=== PATIENT | female | born 1995 | race Caucasian/White ===

== ENCOUNTER 2019-10-22 11:48 | Emergency (ER) | payer SELFPAY ==
[2019-10-22 11:49] VITALS: BP 147/64; PULSE 78; RESP 18; TEMP 36.6; O2SAT 100; BMI 38.0
--- NOTE | 2019-10-22 13:24 | US_ITS ---
STUDY: ULTRASOUND OF THE FEMALE PELVIS - COMPLETE REASON FOR EXAM: Female, 24 years old. VAGINAL BLEEDING AFTER A FALL. -- ABD SENSITIVITY -- LT PELVIC PAIN -- HX OF BC IMPLANT LMP: TECHNIQUE: Transvaginal TECHNICAL QUALITY: Adequate. COMPARISON: None. FINDINGS: The uterus is anteverted and is in a midline position. The uterus measures 6.5 x 3.0 x 4.9 cm. Normal uterine cervix. The endometrium measures 5.1 mm in thickness, and is hyperechoic. Within the lower uterine segment there is a hypervascular 1.7 x 0.7 x 1.4 cm heterogenous rounded focus within the endometrial cavity. There is no demonstrated myometrial mass. I.U.D. - The patient does not have an I.U.D. The right ovary is visualized. The right ovary measures 3.2 x 3.1 x 1.9 cm. There is a 1.7 x 0.7 x 1.4 cm anechoic round focus abutting or arising from the right ovary with an appearance suggestive of a simple cyst. There is normal arterial and normal venous vascularity. The left ovary is visualized. The left ovary measures 3.1 x 1.5 x 2.8 cm. There is no left ovarian cyst or ovarian mass. There is no visualized left adnexal mass or complex lesion. There is normal arterial and normal venous vascularity. There is a moderate amount of fluid in the cul-de-sac. Polycystic ovary disease: No. US/Transvaginal Non- IMPRESSION: Indeterminant 1.7 x 0.7 x 1.4 cm heterogenous hypervascular focus within the endometrial cavity at the level of the lower uterine segment, may reflect an underlying polyp or submucosal fibroid, alternatively may reflect a focal hematoma. Free fluid. Electronically Signed: Deborah Reyes MD at 15:28 EST Tel , Service support ,
[2019-10-22] MEDS: Ondansetron 4 MG/2 ML Vial IV (13:31)
[2019-10-22] MEDS: Ketorolac 30 MG/ML Syringe IV (13:32)
[2019-10-22 13:48] VITALS: BP 116/56; PULSE 67; RESP 16; O2SAT 98
[2019-10-22 13:59] LABS: Absolute Lymphocyte Count 3.82 X10^3/uL (0.83-4.51); Absolute Neutrophil Count 7.6 X10^3/uL (2.0-7.7); Basophil# 0.05 X10^3/uL; Basophil% 0.4 % (0-1); Eosinophils% 2.4 % (0-5); Hematocrit 41.7 % (37-47); Hemoglobin 13.4 g/dL (12.0-15.0); Lymphocyte # 3.82 X10^3/ul (4.0); Lymphocyte % 30.3 % (19-41); Mean Corp Hgb Conc 32.1 g/dL (32-36); Mean Corpuscular Hgb 26.2 pg (27.0-32.0); Mean Corpuscular Volume 81.4 fL (81-99); Mean Platelet Vol. 10.8 fl (6.2-12.0); Monocyte# 0.77 X10^3/uL; Monocyte% 6.1 % (0-10); NRBC Flagged by Analyzer 0 % (0-5); Neutrophil # 7.63 X10^3/uL (2.7-7.7); Neutrophil % 60.5 % (47-70); Platelet Count 301 K/mm3 (150-450); RBC Distribution Width CV 14.1 % (11.6-14.6); RBC Distribution Width SD 41.3 fl (35.1-43.9); Red Blood Count 5.12 M/mm3 (4.2-5.4); White Blood Count 12.6 K/mm3 (4.4-11.0)
[2019-10-22 14:12] LABS: Anion Gap 8 (5-15); BUN 16 mg/dL (7-18); BUN/Creat Ratio 17.5 RATIO (10-20); Calcium,Total 9.4 mg/dL (8.5-10.1); Chloride 107 mmol/L (98-107); Creatinine, Serum 0.91 mg/dL (0.55-1.02); EST Glomerular Filtration Rate 80 mL/min (>60); Est Glom Filt Rate - Afr Amer 97 mL/min (>60); Estimated Creatinine Clearance 78.86 ml/min; Glucose 78 mg/dL (74-106); Potassium 3.9 mmol/L (3.5-5.1); Sodium Level 138 mmol/L (136-145)
[2019-10-22 14:20] LABS: Internal QC Validated? YES +Cl - CLEAR BKGD; Pregnancy, Urine Negative Negative
[2019-10-22 14:23] LABS: Bacteria 0 SEEN /hpf (None Seen); Mucous, Urine 0 SEEN /hpf (<or=2+)
[2019-10-22 14:25] LABS: Color, Urine Straw (Yellow); Glucose, Dipstick Normal (Normal); Ketone-Dipstick Negative (Negative); Leukocyte Esterase-Dipstick 25 /ul (Negative); Nitrite-Dipstick Negative (Negative); Occult Blood-Urine 150 /ul (Negative); Protein-Dipstick Negative (Negative); Urine Bilirubin Dipstick Negative (Negative); Urine Clarity Clear (Clear); Urine Urobilinogen Normal (Normal)
[2019-10-22 14:31] LABS: Red Blood Cells-Urine 10-25 SEEN /hpf (0-5); Squamous Epithelial Cells - UA 0-5 SEEN /hpf (5-10); White Blood Cells 0-5 SEEN /hpf (0-5)
--- NOTE | 2019-10-22 14:33 | ED.DCSUM_ITS ---
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 She did not injure her abdomen that she knows of, or her vagina but then noticed that there was bleeding shortly thereafter. It slowed to spotting within the day, but then today got worse with more severe pain in the left pelvis. She denies any other symptoms. No radiation into the back. No fevers. She has a Nexplanon implant. Past Medical History - Allergies and Home Meds Allergies/Adverse Reactions: Allergies No Known Allergies Allergy (Verified 10/22/19 11:52) Primary Care Physician: Care Physician,No Primary [Primary Care Provider] - Past Medical History: None Lives: Spouse/ Significant Other Smoking Status: Current every day smoker Review of Systems General: Denies: Chills, Fever, Sweats Eyes: Denies: Visual changes - bilaterally, Diplopia ENT: Denies: Rhinorrhea, Sore throat Cardiovascular: Denies: Chest pain, Palpitations Respiratory: Denies: Dyspnea, Cough, Dyspnea on exertion Gastrointestinal: Reports: Abdominal pain. Denies: Nausea, Vomiting, Diarrhea, Melena, Hematochezia Genitourinary: Reports: - - Vaginal bleeding. Denies: Dysuria, Hematuria, Frequency Musculoskeletal: Denies: Back pain, Extremity Pain Skin: Denies: Rash, Wounds Neurological: Denies: Headache, Weakness, Numbness Physical Exam Vital Signs/Narrative: Vital Signs Temp Pulse Resp BP Pulse Ox 10/22/19 11:49 97.9 F 78 18 147/64 H 100 Inital Vital Signs reviewed: Yes General: Well nourished, Well developed, No Acute Distress Head: Normocephalic, Atraumatic Eyes: Perrl, EOMI ENT: Moist mucous membranes, No rhinorrhea Neck: Supple, Nontender Cardiovascular: Regular rate, Regular rhythm, No murmurs Respiratory: No distress, CTA bilaterally, Chest nontender Abdomen: Soft, Nondistended, Normal bowel sounds, No masses, Tender - Left pelvis, less tender in suprapubic area. Otherwise benign.. Negative for: Guarding, Rebound tenderness Back: Nontender, Normal Inspection. Negative for: CVA tenderness Extremities: Nontender, No edema Skin: Normal color, No rash, No Trauma Neurological: Alert, Oriented x3, Cranial nerves II-XII grossly intact, Normal Strength, Normal Sensation Psychological: Normal affect, Normal Mood Diagnostic/Tx/Re-eval Impressions Transvaginal US 10/22/19 13:24 IMPRESSION: Indeterminant 1.7 x 0.7 x 1.4 cm heterogenous hypervascular focus within the endometrial cavity at the level of the lower uterine segment, may reflect an underlying polyp or submucosal fibroid, alternatively may reflect a focal hematoma. Free fluid. Electronically Signed: Deborah Reyes MD at 15:28 EST Tel , Service support , 10/22/19 13:24 Transvaginal Non- [US] Stat Laboratory Results 10/22/19 10/22/19 10/22/19 13:08 13:47 13:47 WBC 12.6 H RBC 5.12 Hgb 13.4 Hct 41.7 MCV 81.4 MCH 26.2 L MCHC 32.1 RDW Std Deviation 41.3 RDW Coeff of Leigh 14.1 Plt Count 301 MPV 10.8 Immature Gran % (Auto) 0.300 Neut % (Auto) 60.5 Lymph % (Auto) 30.3 Wolfe % (Auto) 6.1 Eos % (Auto) 2.4 Baso % (Auto) 0.4 Absolute Neuts (auto) 7.6 Absolute Lymphs (auto) 3.82 Nucleated RBC % 0 Sodium 138 Potassium 3.9 Chloride 107 Carbon Dioxide 23.0 Anion Gap 8 BUN 16 Creatinine 0.91 Estim Creat Clear Calc 78.86 Est GFR (MDRD) Af Amer 97 Est GFR (MDRD) Non-Af 80 BUN/Creatinine Ratio 17.5 Glucose 78 Calcium 9.4 Urine Color Urine Clarity Urine pH Ur Specific Concord Urine Protein Urine Glucose (UA) Urine Ketones Urine Occult Blood Urine Nitrite Urine Bilirubin Urine Urobilinogen Ur Leukocyte Esterase Urine RBC Urine WBC Ur Squamous Epith Cells Urine Bacteria Urine Mucus Urine Test Negative 10/22/19 13:48 WBC RBC Hgb Hct MCV MCH MCHC RDW Std Deviation RDW Coeff of Leigh Plt Count MPV Immature Gran % (Auto) Neut % (Auto) Lymph % (Auto) Wolfe % (Auto) Eos % (Auto) Baso % (Auto) Absolute Neuts (auto) Absolute Lymphs (auto) Nucleated RBC % Sodium Potassium Chloride Carbon Dioxide Anion Gap BUN Creatinine Estim Creat Clear Calc Est GFR (MDRD) Af Amer Est GFR (MDRD) Non-Af BUN/Creatinine Ratio Glucose Calcium Urine Color Straw Urine Clarity Clear Urine pH 6.0 Ur Specific Concord 1.010 Urine Protein Negative Urine Glucose (UA) Normal Urine Ketones Negative Urine Occult Blood 150 H Urine Nitrite Negative Urine Bilirubin Negative Urine Urobilinogen Normal Ur Leukocyte Esterase 25 H Urine RBC 10-25 SEEN Urine WBC 0-5 SEEN Ur Squamous Epith Cells 0-5 SEEN Urine Bacteria 0 SEEN Urine Mucus 0 SEEN Urine Test - Medical Decision Making Discussed these ultrasound findings with Dr. Oliver, based on this area described on ultrasound she suspects it is likely a polyp. She can follow-up anytime within the next couple weeks unless her bleeding becomes much worse. Discussed with the patient and she is comfortable with that plan and reassured. No sign of ectopic, actively hemorrhaging cyst, or other life-threatening emergency at this time. ED Disposition - Plan for ED Patient: Disposition: Home or Assisted Living Diagnosis: Dysfunctional uterine bleeding Instructions: Dysfunctional Uterine Bleeding Referrals: Sosa Oliver MD [STAFF PHYSICIAN] - 1-2 Weeks Additional Instructions: Ultrasound may represent a uterine polyp.
[2019-10-22 15:00] VITALS: BP 116/56; PULSE 67; RESP 18; O2SAT 98
== END 2019-10-22 16:19 | disposition home or self-care (01) ==
PROVIDERS: Emergency Provider Emergency Medicine
DX: N93.8 Other specified abnormal uterine and vaginal bleeding (principal); F17.200 Nicotine dependence, unspecified, uncomplicated
CPT/HCPCS: 76830; 80048; 81001; 81025; 85025; 96374; 96375; 99285; A4216; J2405

== ENCOUNTER 2019-11-12 01:47 | Emergency (ER) | payer BC, SELFPAY ==
[2019-11-12 01:47] VITALS: BP 103/65; PULSE 95; RESP 20; TEMP 36.6; O2SAT 96; BMI 37.3
--- NOTE | 2019-11-12 01:55 | US_ITS ---
STUDY: ABDOMINAL ULTRASOUND - RIGHT UPPER QUADRANT REASON FOR VISIT: Female, 24 years old c/o abd pain for monhs, increasing pain tonight TECHNIQUE: Ultrasound evaluation of the right upper quadrant was performed with real-time and static ambriz-scale imaging. TECHNICAL QUALITY: Adequate. COMPARISON: None. FINDINGS: Liver: The liver measures 15.4 cm. There is normal echogenicity of the liver. The bile ducts are within normal limits. There is hepatic color flow. The direction of portal flow is hepatopetal. There is no demonstrated mass lesion. Gallbladder: Normal distended gallbladder. The gallbladder wall measures 2.4 mm. There is a negative sonographic Blue''s sign. There is no pericholecystic fluid. There are no gallstones. Common Bile Duct (C.B.D.): The common bile duct measures 2.3 mm. Pancreas: Normal size of the head, body of the pancreas. There is normal echogenicity of the pancreas. There is no demonstrated pancreatic mass or cyst. Right Kidney: Normal size of the right kidney. The right kidney measures 10.8 x 5.1 x 4.3 cm. Normal renal cortex. The right cortex measures 1.7 cm. There is no demonstrated renal mass or cyst. There is no right hydronephrosis. US/Gallbladder IMPRESSION: Normal right upper quadrant ultrasound examination. Electronically Signed: Janelle Gurrola, at 5:23 EST Tel , Service support ,
[2019-11-12 02:00] LABS: Absolute Lymphocyte Count 2.99 X10^3/uL (0.83-4.51); Absolute Neutrophil Count 8.7 X10^3/uL (2.0-7.7); Basophil# 0.05 X10^3/uL; Basophil% 0.4 % (0-1); Eosinophil# 0.22 X10^3/uL; Eosinophils% 1.7 % (0-5); Hematocrit 34.7 % (37-47); Hemoglobin 11.4 g/dL (12.0-15.0); Lymphocyte # 2.99 X10^3/ul (4.0); Lymphocyte % 23.5 % (19-41); Mean Corp Hgb Conc 32.9 g/dL (32-36); Mean Corpuscular Hgb 26.4 pg (27.0-32.0); Mean Corpuscular Volume 80.3 fL (81-99); Monocyte% 5.5 % (0-10); NRBC Flagged by Analyzer 0 % (0-5); Neutrophil % 68.6 % (47-70); Platelet Count 349 K/mm3 (150-450); RBC Distribution Width CV 13.6 % (11.6-14.6); RBC Distribution Width SD 39.7 fl (35.1-43.9); Red Blood Count 4.32 M/mm3 (4.2-5.4); White Blood Count 12.7 K/mm3 (4.4-11.0)
[2019-11-12] MEDS: Ondansetron 4 MG/2 ML Vial IV (02:01)
[2019-11-12] MEDS: Morphine 4 MG/ML Syringe IV ×2 (02:01→02:44)
[2019-11-12] MEDS: 0.9% Normal Saline 1,000 ML 1000 ML IV (02:01)
[2019-11-12 02:04] LABS: Bacteria 0 SEEN /hpf (None Seen); Mucous, Urine 0 SEEN /hpf (<or=2+); Red Blood Cells-Urine 0 SEEN /hpf (0-5); White Blood Cells 0 SEEN /hpf (0-5)
[2019-11-12 02:05] LABS: Color, Urine Yellow (Yellow); Glucose, Dipstick Normal (Normal); Ketone-Dipstick Negative (Negative); Leukocyte Esterase-Dipstick Negative /ul (Negative); Nitrite-Dipstick Negative (Negative); Occult Blood-Urine 10 /ul (Negative); Protein-Dipstick Negative (Negative); Urine Bilirubin Dipstick Negative (Negative); Urine Clarity Clear (Clear); Urine Urobilinogen Normal (Normal)
[2019-11-12 02:08] LABS: Internal QC Validated? YES +Cl - CLEAR BKGD; Pregnancy, Urine Negative Negative
[2019-11-12 02:11] LABS: Squamous Epithelial Cells - UA 0-5 SEEN /hpf (5-10)
[2019-11-12 02:51] LABS: ALB/GLOB Ratio 0.8 RATIO (0.9-2.4); AST(SGOT) 19 U/L (15-37); Alanine Aminotransfer ALT/SGPT 23 U/L (13-56); Albumin, Serum 3.4 g/dL (3.2-5.0); Alkaline Phosphatase 71 U/L (45-117); Anion Gap 7 (5-15); BUN 9 mg/dL (7-18); BUN/Creat Ratio 11.3 RATIO (10-20); Calcium,Total 9.6 mg/dL (8.5-10.1); Chloride 106 mmol/L (98-107); EST Glomerular Filtration Rate 94 mL/min (>60); Est Glom Filt Rate - Afr Amer 114 mL/min (>60); Globulin 4.5 g/dL (2.2-4.2); Glucose 92 mg/dL (74-106); Lipase 70 U/L (73-393); Potassium 3.9 mmol/L (3.5-5.1); Protein, Total 7.9 g/dL (6.4-8.2); Sodium Level 137 mmol/L (136-145)
[2019-11-12 04:02] VITALS: RESP 16
--- NOTE | 2019-11-12 05:31 | ED.VISSUMM ---
- ER Visit Summary Date of Service: 11/12/19 Chief Complaint: Abdominal pain History of Present Illness: The patient is a 24 F with upper abdominal pain over the past month. Tonight she started to have sharp pain on the right side and it radiated to her back. Worse with touch and breathing. The pain is severe. Associated with nausea, but denies any other GI symptoms. Denies fever. Denies skin changes. Denies any history of abdominal surgeries. Denies chest pain, shortness of breath. Denies urinary symptoms Physical Examination: Afebrile and vital signs unremarkable. Alert and oriented. No acute distress. Skin appears normal. Heart regular. Lungs clear. Abdomen tender in the right upper quadrant with light touch. No guarding or rebound. Test Results: White count 12.7, hemoglobin 11.4, CMP, lipase, urinalysis, hCG negative. Ultrasound was unremarkable. Emergency Department Course and Treatment: Patient has upper abdominal pain, worse on the right. Work-up is unremarkable except for a leukocytosis of 12.7, and on review of her prior labs, this is actually stable or decreased from her prior values. Her hemoglobin is stable. No sign of gallbladder, liver, pancreas disease. I suspect she may have gastritis or an ulcer. Her repeat exam shows that she is resting comfortably. No significant tenderness or pain at this time. Patient is appropriate for outpatient follow-up. She is establishing with a new PCP tomorrow. I encouraged her to keep that appointment. We will start her on Prilosec. Return for any new or worsening issues. Treatment Plan: As above Disposition: Discharge Impression: 1. Upper abdominal pain This note was generated with [employer] dictation software. It may contain incorrect words, spelling, and punctuation that were not noted in review of the chart prior to signing ED Disposition - Plan for ED Patient: Referrals: Care Physician,No Primary [Primary Care Provider] -
--- NOTE | 2019-11-12 05:33 | ED.DEP ---
ED Disposition - Plan for ED Patient: Instructions: ABDOMINAL PAIN, Unknown Cause, (Female) Prescriptions: Omeprazole [Prilosec] 20 mg PO DAILY #30 cap Prescription Printed Referrals: Mark Lawler MD [[facility]] -
[2019-11-12 05:44] VITALS: BP 124/61; PULSE 84; RESP 16; O2SAT 100
== END 2019-11-12 05:44 | disposition home or self-care (01) ==
PROVIDERS: Emergency Provider Emergency Medicine
DX: R10.10 Upper abdominal pain, unspecified (principal)
CPT/HCPCS: 76705; 80053; 81001; 81025; 83690; 85025; 96361; 96374; 96375; 96376; 99283; J7030; J2405